=== PATIENT | female | born 1940 | race Caucasian/White ===

== ENCOUNTER 2016-10-10 10:59 | Day surgery (SDC) | payer MEDICARE, MEDICAID ==
[~2016-10-10] VITALS: Ht 167.6 cm; Wt 72.7 kg
[2016-10-10] MEDS ORDERED: HYDROCODONE-APA1 TAB PO (12:08)
[2016-10-10] MEDS ORDERED: LEVOXYL75 MCG PO (12:08)
[2016-10-10] MEDS ORDERED: HYDROCHLOROTH12.5 M1 PO (12:09)
[2016-10-10] MEDS ORDERED: ZEBETA10 MG PO (12:09)
[2016-10-10] MEDS ORDERED: ELAVIL25 MG PO (12:10)
[2016-10-10] MEDS ORDERED: OMEPRAZOLE20 M1 PO (12:10)
[2016-10-10] MEDS ORDERED: FLUTICASONE PRO16 GM NASAL (12:11)
[2016-10-10] MEDS ORDERED: VITAMIN D10000 UNI1 PO (12:11)
[2016-10-10] MEDS ORDERED: BIOTIN5 MG PO (12:11)
[2016-10-10] MEDS ORDERED: CLARITIN 10 MG10 MG PO (12:12)
[2016-10-10] MEDS ORDERED: MULTI-DAY VITAM1 TAB PO (12:12)
[2016-10-10 12:27] VITALS: BP 150/69; Ht 167.6 cm; Wt 72.7 kg
--- NOTE | 2016-10-10 15:25 | NUR ---
DISCHARGE INSTRUCTIONS REVIEWED WITH PATIENT, INCLUDING PRINTED ANTI-REFLUX DIET AND TIPS, LIST OF NSAIDS AND BLOOD THINNERS TO AVOID, AND PRESCRIPTIONS, PATIENT DISCHARGED HOME VIA WHEELCHAIR TO PRIVATE VEHICLE WITH NIECE
--- NOTE | 2016-11-16 11:24 | OP ---
PATIENT NAME: ABISAI TORREZ MEDICAL RECORD: [id number] :39 LOCATION:[facility] ADMISSION DATE: SURGEON: KAMILAH ESPINOZA MD DATE OF OPERATION: 10/10/2016 EGD with Balloon Dilatation and EGD with Biopsy Report. PROCEDURE: EGD with balloon dilatation and biopsy. SCOPE: An Olympus video gastroscope and a CRE Microvasive balloon from 45-60 [place]ian. MEDICATIONS: Per TIVA anesthesia. The patient has coronary artery disease, hypertension, hypothyroidism and diabetes mellitus. She received 150 mg of propofol IV push for this procedure, O2 of 4 liters. INDICATION FOR THE PROCEDURE: Halitosis and gastroesophageal reflux disease. FINDINGS: Informed consent was given. The patient was made comfortable with the above medications. After reaching an adequate level of sedation by slow IV push, the patient was placed on her left side. The endoscope was then advanced under direct visualization through the posterior pharyngeal area and advanced to the distal esophagus. A very thick Schatzki ring was seen in this area, as well as a small esophageal ulcerations with marked inflammation in this same area and after the inspection part of the EGD was completed, a CRE Microvasive balloon was placed in this area, inflated to 60-[place]serratian, held in place for 1 minute without complication. We then took biopsies of the ring to further expand the area and also of the distal esophageal ulcerations. On entering the stomach, a hiatal hernia was noted both on direct and retroflex views. The patient also had many AVMs, which we will address with her next procedure with photocoagulation. None of these were actively bleeding, but will need to be addressed. At the antral area, inflammation was appreciated to a mild degree. Biopsies were taken looking for the presence of Helicobacter pylori. The duodenal bulb to the second portion had mild inflammation present biopsies were obtained. The scope was then withdrawn. IMPRESSION: 1. 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 2. Multiple esophageal ulcerations, biopsied. 3. Small hiatal hernia. 4. Multiple nonhemorrhagic gastric arteriovenous malformations, which will be treated in 8 weeks with the patient's next EGD. 5. Gastritis to a mild degree. Biopsy taken at the antral area looking for Helicobacter pylori. 6. Mild duodenitis. PLAN: 1. Caution with anti-inflammatory drugs and aspirin please. 2. Patient to follow reflux precautions stringently, both dietary and positional. No chocolate, tomatoes, citrus, caffeine, fatty foods, peppermint. The patient should not eat late at night and sit up for hours after eating as she is refluxing into her throat. She will require an upper GI if this has not already been done. 3. EGD in 8 weeks, which will be scheduled. OPERATIVE REPORT [id number] ABISAI TORREZ TRANSINT:[id number] Voice Confirmation ID: [id number] DOCUMENT ID: [id number] KAMILAH ESPINOZA MD at 1124 CC: MARYJO HALE MD [id number] DICTATION DATE: 10/10/16 1357 [employer]: 10/10/16 1432 [facility] 10/10/[address] [address]
== END 2016-10-10 15:25 | disposition home or self-care (01) ==
LOC: D.OPS 10:59
DX: K22.10 Ulcer of esophagus without bleeding (principal); K44.9 Diaphragmatic hernia without obstruction or gangrene; K29.70 Gastritis, unspecified, without bleeding; K29.80 Duodenitis without bleeding; I10 Essential (primary) hypertension; E03.9 Hypothyroidism, unspecified; M19.90 Unspecified osteoarthritis, unspecified site

== ENCOUNTER → 2019-06-03 08:28 | Outpatient (CLI) | payer MEDICARE, BC ==
[2016-10-10 12:27] VITALS: BMI 25.8
[~2019-06-03 08:28] MED LIST: BIOTIN5 MG PO; CLARITIN 10 MG10 MG PO; CO Q-1030 MG PO; CRESTOR5 MG PO; ELAVIL25 MG PO; FLUTICASONE PRO16 GM NASAL; HYDROCHLOROTH12.5 M1 PO; HYDROCODON-ACE1 EA10 PO; HYDROCODONE-APA1 TAB PO; LEVOXYL75 MCG PO; MULTI-DAY VITAM1 TAB PO; OMEPRAZOLE20 M1 PO; PEPCID AC20 MG PO; VITAMIN D10000 UNI1 PO; ZEBETA10 MG PO
== END | disposition home or self-care (01) ==
LOC: D.US 08:28
PROVIDERS: ATTEND Family Medicine
DX: K80.80 Other cholelithiasis without obstruction (principal)

== ENCOUNTER 2019-06-20 06:45 | Day surgery (SDC) | payer MEDICARE, BC ==
[2019-06-18 12:38] LABS: BASOPHILS 0.3 % (0-2); EOSINOPHILS 6.3 % (0-7); HEMATOCRIT 39.3 % (36.0-48.0); HEMOGLOBIN 12.6 g/dL (12-16); IMMATURE GRANULOCYTES 0.3 % (0-5); LYMPHOCYTES 21.7 % (15-50); MCH 30.8 pg (26.0-34.0); MCHC 32.1 g/dL (31.0-37.0); MCV 96.1 fL (80.0-100.0); MONOCYTES 10.4 % (2-11); PLATELET COUNT 322 10x3/uL (130-400); RBC 4.09 10x6/uL (4.00-5.40); WBC 8.6 10x3/uL (4.8-10.8)
[2019-06-18 12:49] LABS: CALCIUM 9.1 mg/dL (8.5-10.1); CARBON DIOXIDE 34.9 mmol/L (21.0-32.0); CREATININE - SERUM 0.9 mg/dL (0.6-1.3); POTASSIUM - SERUM 3.9 mmol/L (3.5-5.1)
[~2019-06-20] VITALS: Ht 167.6 cm; Wt 73.5 kg
[~2019-06-20 06:45] MED LIST changes: -HYDROCODON-ACE1 EA10 PO
[2019-06-20 07:54] VITALS: BP 148/67; Ht 167.6 cm; Wt 73.5 kg
[2019-06-20] MEDS ORDERED: HYDROCODON-ACE1 EA10 PO (09:25)
--- NOTE | 2019-06-21 08:22 | OP ---
PATIENT NAME: ABISAI TORREZ MEDICAL RECORD: [id number] :39 LOCATION:[facility] ADMISSION DATE: SURGEON: HARMAN SCALES MD DATE OF OPERATION: 06/20/2019 PREOPERATIVE DIAGNOSES: 1. Gallstones. 2. Hypertension. 3. Hypercholesterolemia. POSTOPERATIVE DIAGNOSES: 1. Gallstones. 2. Hypertension. 3. Hypercholesterolemia. PROCEDURE: Laparoscopic cholecystectomy. SURGEON: Harman Scales MD REPORT OF PROCEDURE: The patient's abdomen was prepped and draped in sterile fashion. A cutdown was made on the superior aspect of the umbilicus, 0 Vicryls were placed in the fascia bilaterally and the fascia was incised with a 15-blade. I then bluntly entered the peritoneal cavity and placed a 12-mm Kasey port. Under direct visualization, a 5 mm trocar was placed in the epigastrium and 2 more 5-mm trocars were placed in the right subcostal region. The gallbladder was grasped and elevated. The cystic artery and cystic duct were dissected free and these were clipped proximally and distally and ligated in standard fashion. The gallbladder was then taken off the liver bed using electrocautery and placed into the right upper quadrant. Any bleeding from the liver bed was then treated with electrocautery. At this point, the ports and insufflation were then removed and the gallbladder was taken out through the umbilicus. The umbilical fascia was closed with interrupted 0 Vicryls times 3. The wounds were then irrigated out with normal saline and infused with 10 mL of 0.25% Marcaine with epinephrine. The skin incisions were all closed with subcutaneous 5-0 Monocryl and dressed appropriately. COMPLICATIONS: None. CONDITION: Stable. ANESTHESIA: General endotracheal and local. BLOOD LOSS: Minimal. TRANSINT:[id number] Voice Confirmation ID: [id number] DOCUMENT ID: [id number] HARMAN SCALES MD at 0822 CC: MARYJO HALE [id number] DICTATION DATE: 06/20/19928 TRACK INSPECTING SUPERVISOR: 06/20/19 1052 [facility] 06/20/19 [place] [address]
== END 2019-06-20 12:00 | disposition home or self-care (01) ==
LOC: D.OPS 06:45 → D.PAN 09:00 → D.OPS 09:00
PROVIDERS: ATTEND Surgery
DX: K80.80 Other cholelithiasis without obstruction (principal)